=== PATIENT | male | born 2000 | race African-American/Black ===

== ENCOUNTER 2020-06-10 18:11 | Emergency (ER) | payer BC ==
[~2020-06-10] VITALS: Ht 172.7 cm; Wt 109.1 kg
[2020-06-10 18:58] VITALS: BP 134/87; Ht 172.7 cm; Wt 109.1 kg
[2020-06-10] MEDS ORDERED: VOLTAREN75 MG PO (19:58)
== END 2020-06-10 20:21 | disposition home or self-care (01) ==
LOC: D.ER 18:11
DX: S90.31XA Contusion of right foot, initial encounter (principal); W22.8XXA Striking against or struck by other objects, initial encounter; Y93.9 Activity, unspecified; Y92.9 Unspecified place or not applicable